=== PATIENT | female | born 1980 | race American Indian/Alaskan Native ===

== ENCOUNTER 2018-02-06 18:29 | Outpatient (CLI) | payer OTHER ==
[2018-02-06] MEDS ORDERED: LACTATED RINGERS 500 ML IV ONE (20:49)
--- NOTE | 2018-02-06 23:20 | Ultrasound Report ---
FINAL REPORT PROCEDURE: US OB FOLLOW UP TECHNIQUE: Real-time limited sonographic examination was performed for evaluation of size, position, heartbeat, fluid volume for each fetus with image documentation (1 or more fetuses). CPT 07097 HISTORY: SPOTTING COMPARISON: No prior studies are available for comparison. FINDINGS: MATERNAL Uterus: Within normal limits . Cervix length: 3.4 cm. Internal Os: Closed . FETUS IUP: Single living intrauterine . Position: Transverse. Placental position: Anterior, without previa . Amniotic fluid volume: Normal . Heart rate and rhythm: 141 BPM, Regular . anatomic survey: Not performed on this study. MEASUREMENTS BPD: 9.1 centimeter. HC: 31.8 centimeter. AC: 31.6 centimeter. FL: 6.9 centimeter. Mean Gestational Age (composite criteria): 35 weeks 5 days. Ratio biometry: Normal . Estimated Weight: 2704 grams. Interval growth: Appropriate . Estimated Due Date (this scan): 03/08/2018. IMPRESSION: 1. Single living intrauterine gestation at approximately 35 weeks 5 days. 2. EDC by US 03/08/2018.
== END 2018-02-06 23:43 | disposition home or self-care (01) ==
LOC: TRG 18:29
PROVIDERS: ATTEND Obstetrics & Gynecology Gynecology
DX: O32.2XX0 Maternal care for transverse and oblique lie, not applicable or unspecified (principal); O09.523 Supervision of elderly multigravida, third trimester; O47.03 False labor before 37 completed weeks of gestation, third trimester; Z3A.35 35 weeks gestation of pregnancy
CPT/HCPCS: 59025; 76816; J7120; 96361

== ENCOUNTER 2018-02-19 11:31 | Inpatient (IN) | payer SELFPAY ==
[2018-02-19] MEDS ORDERED: LACTATED RINGERS 1,000 ML IV ONE (12:26)
[2018-02-19] MEDS ORDERED: LACTATED RINGERS 1,000 ML ONE ×2 (17:33→19:28)
[2018-02-19] MEDS ORDERED: AMBIEN PO PRN (19:05)
[2018-02-19] MEDS ORDERED: BENADRYL PO PRN (19:05)
[2018-02-19] MEDS ORDERED: COLACE PO PRN (19:05)
[2018-02-19] MEDS ORDERED: DEEP SEA NS PRN (19:05)
[2018-02-19] MEDS ORDERED: ZOFRAN IV PRN (19:05)
--- NOTE | 2018-02-19 19:10 | History and Physical Report ---
History of Present Illness Date of examination: 02/19/18 Date of admission: 02/19/18 12:25 Chief complaint: decreased movement, vaginal bleeding History of present illness: Pt is a 37 year old MILDRED 03/31/18 at 34w2d who presents with decreased movement x 24 hrs. She also reports intermittent vaginal bleeding for the past 2-3 weeks, with an increase in bleeding over the past 48 hrs with clots. She has had care at [facility] x 1 visit on 02/09/18 but hand care in [place] prior to coming to [place]. Her has been complicated by obesity, advanced maternal age, UTI undergoing treatment, glucose intolerance with a normal 3 hr GTT, thrombocytopenia (platelet count 110 ,000 on 02/09/18) and GBS positive status. Of note, the patient reports receiving two doses of betamethasone beginning January 11. 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 Past History Past Medical History: GERD, other (Obesity) Past Surgical History: D&C Family/Genetic History: diabetes, hypertension Social history: no significant social history, - Obstetrical History Expected Date of Delivery: 03/31/18 Actual Gestation: 34 Week(s) 3 Day(s) : 4 Para: 2 Hx # Term Pregnancies: 2 Number of Pregnancies: 0 Spontaneous Abortions: 1 Induced : 0 Number of Living Children: 2 Medications and Allergies Allergies Allergy/AdvReac Type Severity Reaction Status Date / Time Sulfa (Sulfonamide Allergy Rash Verified 02/06/18 20:49 Antibiotics) Home Medications Medication Instructions Recorded Confirmed Last Taken Type Nitrofurantoin Monohyd/M-Cryst 100 mg PO BID 02/19/18 02/19/18 Unknown History [Macrobid 100 mg Capsule] Vit-Fe Fumar-FA [ 1 tab PO QDAY 02/19/18 02/19/18 Unknown History Vitamin] Active Meds: Active Medications Acetaminophen (Tylenol) 650 mg PO Q4H PRN PRN Reason: Pain MILD(1-3)/Fever >100.5/TREADWELL Betamethasone Acet/Betameth SodPhos (Celestone Soluspan) 12 mg IM Q24HR JACQUELINE Stop: 02/20/18 10:01 Diphenhydramine HCl (Benadryl) 25 mg PO Q6H PRN PRN Reason: Itching Docusate Sodium (Colace) 100 mg PO Q12H PRN PRN Reason: Constipation Multivitamins/Iron/Calcium ( Vitamin) 1 each PO QDAY JACQUELINE Ondansetron HCl (Zofran) 4 mg IV Q6H PRN PRN Reason: Nausea And Vomiting Sodium Chloride (Deep Sea) 2 spray NS Q4H PRN PRN Reason: Congestion Zolpidem Tartrate (Ambien) 10 mg PO ONCE PRN PRN Reason: Sleep Review of Systems All systems: negative - Vital Signs Vital signs: Vital Signs Pulse Resp 60 20 02/19/18 12:15 02/19/18 12:15 Temp Pulse Resp BP Pulse Ox 78 20 133/79 02/19/18 19:07 02/19/18 12:15 02/19/18 19:07 - Physical Exam Breasts: Positive: deferred Cardiovascular: Regular rate Lungs: Positive: Clear to auscultation Abdomen: Positive: soft (obese, gravid ) Genitourinary (Female): Positive: normal external genitalia Uterus: Positive: enlarged (gravid ) Extremities: Positive: edema (trace) - Obstetrical FHR: auscultation normal Uterine Contraction Monitor Mode: External Cervical Dilatation: 0.5 Cervical Effacement Percentage: 40 station: -4 Uterine Contraction Pattern: Irregular Uterine Tone Measurement Phase: Resting Uterine Contraction Intensity: Mild Results Result Diagrams: 02/19/18 20:40 Abnormal lab results 02/19/18 Range/Units 17:15 POC Glucose 46 L (70-105) All other labs normal. Assessment and Plan A: IUP at 34w2d Decreased Movement Vaginal Bleeding Thrombocytopenia Obesity AMA GBS positive Glucose Intolerance GERD P: Admit to antepartum service BPP and limited OB ultrasound CBC, Type and Screen MFM consult Closely monitor clinical status
[2018-02-19] MEDS ORDERED: LACTATED RINGERS 1,000 ML IV SCH (20:00)
[2018-02-19] MEDS ORDERED: CELESTONE SOLUSPAN IM SCH (20:00)
[2018-02-19 21:10] LABS: Hemoglobin 10.3 gm/dl (10.1-14.3); Mean Corpuscular HGB Conc 32 % (30-34); Mean Corpuscular Hemoglobin 33 pg (28-32); Mean Corpuscular Volume 102 fl (79-97); Platelet Count 100 K/mm3 (140-440); Red Blood Count 3.16 M/mm3 (3.65-5.03); Red Cell Distribution Width 15.3 % (13.2-15.2)
[2018-02-19 21:55] LABS: Basophils % (Manual) 0 % (0.0-1.8); Eosinophils % (Manual) 0 % (0.0-4.3); Myelocytes # (Manual) 0.2 K/mm3; Total Cells Counted 100
[2018-02-19 21:56] LABS: Platelet Estimate Consistent w Auto; RBC Morphology Normal
--- NOTE | 2018-02-20 00:44 | Ultrasound Report ---
FINAL REPORT EXAM: US OB BPP WO NON-STRESS HISTORY: well being, vaginal bleeding TECHNIQUE: A limited OB sonogram was obtained for biophysical profile. FINDINGS: For breathing movements, a score of 2 out of 2 was obtained. For movements, a score of 2 out of 2 was obtained. For posture in tone, a score of 2 out of 2 was obtained. For qualitative amniotic fluid volume, a score of 2 out of 2 was obtained. The heart rate is 153 BPM. IMPRESSION: Biophysical profile score of 8 out of 8. The heart rate is 153 BPM.
--- NOTE | 2018-02-20 07:42 | Ultrasound Report ---
FINAL REPORT EXAM: US OB LIMITED HISTORY: r/o abruption; h/o vaginal bleeding. TECHNIQUE: A limited OB sonogram was obtained for evaluation of the placenta. FINDINGS: The placenta is on the left lateral wall of the uterus. It is grade 1. There is no evidence of placental abruption. The fetus is in cephalic presentation. The heart rate is 148 BPM. IMPRESSION: No evidence of placental abruption. The heart rate is 148 BPM.
[2018-02-20] MEDS: PRENATAL VITAMIN PO SCH (11:26)
--- NOTE | 2018-02-20 13:22 | Progress Note ---
Assessment and Plan A: IUP at 34w3d Decreased Movement Vaginal Bleeding Thrombocytopenia Obesity AMA GBS positive Glucose Intolerance GERD UTI P: will change macrobid to rocephin and d/c home on keflex await MFM consult ( verbal from Dr. Mehta) close monitor Subjective - Subjective Date of service: 02/20/18 Principal diagnosis: vaginal bleeding in third trimester Patient reports: movement normal, no new complaints, no loss of fluid Objective - Vital Signs Vital Signs: Vital Signs - 12hr 02/20/18 02/20/18 02/20/18 08:33 08:40 12:57 Temperature 97 F L Pulse Rate 62 62 67 Respiratory 20 Rate Blood Pressure 126/57 Blood Pressure 126/52 [Right] O2 Sat by Pulse 98 Oximetry 02/20/18 02/20/18 02/20/18 13:01 13:02 13:07 Temperature 97.8 F Pulse Rate 77 69 77 Respiratory 20 Rate Blood Pressure 124/64 Blood Pressure 124/64 [Right] O2 Sat by Pulse 99 99 98 Oximetry 02/20/18 02/20/18 02/20/18 13:12 13:17 13:22 Temperature Pulse Rate 70 67 70 Respiratory Rate Blood Pressure Blood Pressure [Right] O2 Sat by Pulse 99 98 99 Oximetry - Exam Breasts: normal Cardiovascular: Regular rate, Normal S1 Lungs: Clear to auscultation, Normal air movement Abdomen: Present: normal appearance, soft, normal bowel sounds. Absent: distention, tenderness, guarding Vulva: both: normal Uterus: Present: normal FHR: category 1 Cervical Dilatation: 0.5 Uterine Contraction Pattern: Irregular Deep Tendon Reflex Grade: Normal +2 - Labs Labs: Abnormal Labs 02/19/18 02/19/18 17:15 20:40 RBC 3.16 L MCV 102 H MCH 33 H RDW 15.3 H Plt Count 100 L Seg Neuts % (Manual) 83.0 H Lymphocytes % (Manual) 11.0 L Lymphocytes # (Manual) 0.9 L POC Glucose 46 L Laboratory Results - last 24 hr 02/19/18 02/19/18 02/19/18 17:15 20:40 20:40 WBC 7.9 RBC 3.16 L Hgb 10.3 Hct 32.0 MCV 102 H MCH 33 H MCHC 32 RDW 15.3 H Plt Count 100 L Add Manual Diff Complete Total Counted 100 Seg Neuts % (Manual) 83.0 H Band Neutrophils % 0 Lymphocytes % (Manual) 11.0 L Reactive Lymphs % (Man) 0 Monocytes % (Manual) 4.0 Eosinophils % (Manual) 0 Basophils % (Manual) 0 Metamyelocytes % 0 Myelocytes % 2.0 Promyelocytes % 0 Blast Cells % 0 Nucleated RBC % Not Reportable Seg Neutrophils # Man 6.6 Band Neutrophils # 0.0 Lymphocytes # (Manual) 0.9 L Abs React Lymphs (Man) 0.0 Monocytes # (Manual) 0.3 Eosinophils # (Manual) 0.0 Basophils # (Manual) 0.0 Metamyelocytes # 0.0 Myelocytes # 0.2 Promyelocytes # 0.0 Blast Cells # 0.0 WBC Morphology Not Reportable Hypersegmented Neuts Not Reportable Hyposegmented Neuts Not Reportable Hypogranular Neuts Not Reportable Smudge Cells Not Reportable Toxic Granulation Not Reportable Toxic Vacuolation Not Reportable Dohle Bodies Not Reportable Pelger-Huet Anomaly Not Reportable Matthew Rods Not Reportable Platelet Estimate Consistent w auto Clumped Platelets Not Reportable Plt Clumps, EDTA Not Reportable Large Platelets Not Reportable Giant Platelets Not Reportable Platelet Satelliting Not Reportable Plt Morphology Comment Not Reportable RBC Morphology Normal Dimorphic RBCs Not Reportable Polychromasia Not Reportable Hypochromasia Not Reportable Poikilocytosis Not Reportable Anisocytosis Not Reportable Microcytosis Not Reportable Macrocytosis Not Reportable Spherocytes Not Reportable Pappenheimer Bodies Not Reportable Sickle Cells Not Reportable Target Cells Not Reportable Tear Drop Cells Not Reportable Ovalocytes Not Reportable Helmet Cells Not Reportable [place] Bodies Not Reportable [place] Rings Not Reportable [place] Cells Not Reportable Bite Cells Not Reportable Crenated Cell Not Reportable Elliptocytes Not Reportable Acanthocytes (Spur) Not Reportable Rouleaux Not Reportable Hemoglobin C Crystals Not Reportable Schistocytes Not Reportable Malaria parasites Not Reportable Trino Bodies Not Reportable Hem Pathologist Commnt No POC Glucose 46 L Blood Type O POSITIVE Antibody Screen Negative
--- NOTE | 2018-02-20 14:13 | Consultation ---
History of Present Illness Consult date: 02/20/18 Reason for consult: other (Vaginal Bleeding) History of present illness: She is a 37 year old MILDRED 03/31/18 at 34w3d who presents to [facility] due to increased vaginal bleeding with blood clots prior to hospital admission. She reports she has had intermittent bleeding and contractions since 01/11/18 where she was previously evaluated in [facility] triage and given Terbutaline and Betamethasone x 2. She reports dark brown discharge. She denies any active bleeding/clots and leaking of fluid. She reports contractions every 3-7 minutes. Last cervical assessment on 02/19/18 was fingertip. She recently arrived to the from [facility] where she was receiving Care. Upon review of history and labs, she is being followed by primary OB for AMA, Thrombocytopenia ( recent result of 100,000), GBS positive and obesity. Past History Past Medical History: GERD, other (Obesity) Past Surgical History: D&C Family/Genetic History: diabetes, hypertension - Obstetrical History : 4 Medications and Allergies Allergies Allergy/AdvReac Type Severity Reaction Status Date / Time Sulfa (Sulfonamide Allergy Rash Verified 02/06/18 20:49 Antibiotics) Home Medications Medication Instructions Recorded Confirmed Last Taken Type Nitrofurantoin Monohyd/M-Cryst 100 mg PO BID 02/19/18 02/19/18 Unknown History [Macrobid 100 mg Capsule] Vit-Fe Fumar-FA [ 1 tab PO QDAY 02/19/18 02/19/18 Unknown History Vitamin] Active Meds: Active Medications Acetaminophen (Tylenol) 650 mg PO Q4H PRN PRN Reason: Pain MILD(1-3)/Fever >100.5/TREADWELL Diphenhydramine HCl (Benadryl) 25 mg PO Q6H PRN PRN Reason: Itching Docusate Sodium (Colace) 100 mg PO Q12H PRN PRN Reason: Constipation Lactated Ringer's (Lactated Ringers) 1,000 mls @ 75 mls/hr IV DIRECT JACQUELINE Last Admin: 02/20/18 11:36 Dose: 75 mls/hr Ceftriaxone Sodium (Rocephin/Ns 1 Gm/50 Ml) 1 gm in 50 mls @ 100 mls/hr IV Q24HR JACQUELINE; Protocol Multivitamins/Iron/Calcium ( Vitamin) 1 each PO QDAY JACQUELINE Last Admin: 02/20/18 11:26 Dose: Not Given Ondansetron HCl (Zofran) 4 mg IV Q6H PRN PRN Reason: Nausea And Vomiting Sodium Chloride (Deep Sea) 2 spray NS Q4H PRN PRN Reason: Congestion Zolpidem Tartrate (Ambien) 10 mg PO ONCE PRN PRN Reason: Sleep Review of Systems Constitutional: other (denies headaches, fever, fatigue) Eyes: deferred Ears, nose, mouth and throat: deferred Cardiovascular: other (denies chest pain, palpitations, and edema) Respiratory: other (denies sob, wheezing, and coughing) Breasts: deferred Gastrointestinal: other (denies diarrhea, constipation, nausea) Genitourinary: contractions, other (denies leaking of fluid. reports dark brown spotting occasionally) Rectal Exam: deferred Integumentary: deferred Neurological: other (denies headahces, visual disturbances) - Vital Signs Vital signs: Vital Signs Pulse Resp 60 20 02/19/18 12:15 02/19/18 12:15 Temp Pulse Resp BP Pulse Ox 97.8 F 69 20 124/64 99 02/20/18 13:01 02/20/18 14:07 02/20/18 13:01 02/20/18 13:07 02/20/18 14:07 - Physical Exam Breasts: Positive: deferred Cardiovascular: Regular rate, Normal S1, Normal S2 Lungs: Positive: Clear to auscultation, Normal air movement Abdomen: Positive: soft, other (gravid, nontender) Results Result Diagrams: 02/19/18 20:40 Abnormal lab results 02/19/18 02/19/18 Range/Units 17:15 20:40 RBC 3.16 L (3.65-5.03) M/mm3 MCV 102 H (79-97) fl MCH 33 H (28-32) pg RDW 15.3 H (13.2-15.2) % Plt Count 100 L (140-440) K/mm3 Seg Neuts % (Manual) 83.0 H (40.0-70.0) % Lymphocytes % (Manual) 11.0 L (13.4-35.0) % Lymphocytes # (Manual) 0.9 L (1.2-5.4) K/mm3 POC Glucose 46 L (70-105) All other labs normal. Assessment and Plan A: IUP 34.3 weeks, G [id number] ( [employer] 2016) AMA, Obesity, Thrombocytopenia hx, GBS positive No active bleeding UTI- currently being treated with IV Rocephin Contractions Q3-7 minutes- s/p 500ml fluid bolus Positive movements Ultrasound 02/19/18- no signs of placenta abruption Reassuring surveillance- BPP 02/11 S/P Betamethasone x 2 P: Continue with current plan of care Pt to remain hospitalized overnight for observation with possible discharge tomorrow. With cervical changes, pt to remain hospitalized. IV fluid hydration Continue Rocephin for UTI treatment Parker use of Tocolytics Monitor for vaginal bleeding Kick Counts Monitor Platelets. No need for Corticosteriods at this time for Thrombocytopenia. With reduction less than 90,000, initiate steriod regimen With any signs of active labor, notify NICU for consult For any additional questions or concerns, please contact preparation department supervisor MD for [facility] ( Dr. Mehta). Thank you for your consult.
[2018-02-20 15:21] LABS: Hematocrit 30.7 % (30.3-42.9); Hemoglobin 10.4 gm/dl (10.1-14.3); Mean Corpuscular HGB Conc 34 % (30-34); Mean Corpuscular Hemoglobin 32 pg (28-32); Mean Corpuscular Volume 95 fl (79-97); Platelet Count 113 K/mm3 (140-440); Red Blood Count 3.24 M/mm3 (3.65-5.03); Red Cell Distribution Width 14.4 % (13.2-15.2)
[2018-02-20 15:23] LABS: INR 0.91 (0.87-1.13)
[2018-02-20 15:24] LABS: Partial Thromboplastin Time 27.7 Sec. (24.2-36.6)
[2018-02-20 15:30] LABS: Bilirubin,Urine NEG (Negative); Blood,Urine LG (Negative); Color,Urine Yellow (Yellow); Urobilinogen,Urine < 2.0 mg/dL (<2.0)
[2018-02-20] MEDS: ROCEPHIN/NS 1 GM/50 ML 1 GM/50 ML BAG IV SCH (15:56)
[2018-02-20] MEDS: TYLENOL PO PRN (15:59)
[2018-02-20 16:54] LABS: Basophils % (Manual) 0 % (0.0-1.8); Eosinophils % (Manual) 0 % (0.0-4.3); Platelet Estimate Consistent w Auto; RBC Morphology Normal; Total Cells Counted 100
[2018-02-20] MEDS ORDERED: LACTATED RINGERS 1,000 ML IV SCH (18:30)
[2018-02-20] MEDS ORDERED: REGLAN IV ONE (18:30)
[2018-02-20] MEDS ORDERED: PEPCID IV ONE ×2 (18:30→18:43)
[2018-02-20] MEDS ORDERED: BICITRA PO ONE (18:30)
[2018-02-20] MEDS ORDERED: PITOCin/NS 20 UNIT/1000ML DRIP 20 UNITS/1,000 ML BAG IV SCH ×2 (18:30→21:00)
[2018-02-20] MEDS ORDERED: PITOCin/NS 20 UNIT/1000ML DRIP 20,000 MILLIUNITS/1,000 ML BAG IV ONE (18:43)
[2018-02-20] MEDS ORDERED: REGLAN ONE (18:43)
[2018-02-20] MEDS ORDERED: BICITRA ONE (18:43)
[2018-02-20] MEDS ORDERED: ANCEF/STERILE WATER 2 GM/20 ML 2 GM/20 ML SYRINGE IV ONE (18:44)
[2018-02-20] MEDS ORDERED: MORPHINE ONE (19:18)
--- NOTE | 2018-02-20 19:22 | Event Note ---
Date: 02/20/18 Notified by nursing that the patient's biophysical profile was completed with a score of 8/8 however once the patient was placed back on the monitor she was found to have late decelerations. Nursing was informed to prep the patient for a primary delivery of suspected abruption. The patient is abdomen is tender to palpation. Will proceed with surgery.
--- NOTE | 2018-02-20 19:26 | Procedure Note ---
OB Delivery Note - Delivery Date of Delivery: 02/20/18 Surgeon: ARSLAN CORTEZ Estimated blood loss: other (2000ml) - Section Preop diagnosis: nonreassuring FHR tracing Postop diagnosis: same section procedure: section, primary low transverse Disposition: PACU Complications: transfusion, intra-op hemorrhage - A at 1 minute: 8 at 5 minutes: 9 Gender: Male (5 lbs. 13 oz.)
[2018-02-20] MEDS ORDERED: ANCEF/STERILE WATER 2 GM/20 ML IV ONE (19:30)
--- NOTE | 2018-02-20 19:32 | Ultrasound Report ---
FINAL REPORT EXAM: US OB BPP WO NON-STRESS HISTORY: WELL BEING TECHNIQUE: Biophysical profile obstetrical ultrasound PRIORS: None. FINDINGS: LMP 06/24/2017 clinical Age: 34 W 3 D LMP EDC 03/31/2018 Biophysical profile scoring 2 movement 2 tone 2 breathing 2 fluid 8/8 overall score Cardiac motion: 154 BPM using M-mode doppler Amniotic Fluid Volume: Adequate IMPRESSION: Single intrauterine viable with an approximate age of 34 weeks 3 days. Biophysical profile score is 8/8
[2018-02-20] MEDS ORDERED: WATER FOR IRRIG STERILE IR ONE (19:40)
[2018-02-20] MEDS ORDERED: NACL 0.9% IR ONE (19:40)
[2018-02-20] MEDS ORDERED: TORADOL ONE (19:42)
[2018-02-20] MEDS ORDERED: HESPAN 500 ML IV ONE ×3 (19:45→20:10)
--- NOTE | 2018-02-20 19:51 | Ultrasound Report ---
FINAL REPORT EXAM: US OB FOLLOW UP HISTORY: WELL BEING with vaginal bleeding TECHNIQUE: Limited obstetrical ultrasound PRIORS: None. FINDINGS: LMP: 06/24/2017 clinical Age: 34 w 3 d US Age (average) = 36 w 1d EFW (BPD,HC,AC,FL) = 2836 g +/- 420g (6lbs 4 oz. +/- 15 oz.) LMP EDC 03/31/2018 US EDC 03/19/2018 CI 86.8 (range 74 to 83) HC/AC 0.99 (range 0.96 to 1.11) FL/BPD 77 (range 71.9 To 87.9) FL/HC 21.7 (range 17 to 24.2) FL/AC 21.4 (range 20 to 24.0) BPD 9.0 cm corresponding to estimated age 36 weeks 3 days HC 31.9 cm corresponding to estimated age 36 weeks 0 days AC 32.3 cm corresponding to estimated age 36 weeks 2 days FL 6.9 cm corresponding to estimated age 35 weeks 4 days Presentation: Cephalic Activity: Monitored Placental location: Anterior to the left. No evidence of separation of the placenta is identified. Placental grade: 1 Cardiac motion: 156 BPM using M-mode doppler Amniotic Fluid Volume: Adequate SEEMA is 16.4 cm IMPRESSION: Single intrauterine viable with an approximate age of 36 weeks 1 days. No evidence for placental separation is identified.
[2018-02-20] MEDS ORDERED: NACL 0.9% 1000 ML 1,000 ML ONE (20:34)
[2018-02-20] MEDS ORDERED: NACL 0.9% 500 ML 500 ML IV ONE ×3 (20:36→20:54)
--- NOTE | 2018-02-20 20:36 | Operative Report ---
Operative Report Operative Report: Date of surgery: 02/20/2018 Preoperative diagnosis: at 34+3 weeks; nonreassuring heart rate tracing; suspected placental abruption Postoperative diagnosis: Placental abruption Procedure: Primary low transverse delivery Surgeon: Teresa Mckeon M.D. Anesthesia: Regional Estimated blood loss: 2000 mL IV fluids: 1200 mL Urine output: 75 mL Findings: Liveborn male infant with Apgars of 8 and 9 weight 5 lbs. 13 oz. Evidence of blood-tinged peritoneal fluid. Findings of placental abruption Indications: 37-year-old 012 at 34+3 weeks who presents with chronic vaginal bleeding decreased movement. The patient's physical exam was consistent with a uterus that was tender to palpation and firm. The tracing was consistent with repetitive late decelerations with a high suspicion for placental abruption Procedure: The patient was taken to the operating room and given regional anesthesia without complication. She was prepped and draped in a normal sterile fashion. A Pfannenstiel skin incision was made down to layer the fascia which was nicked in the midline extended laterally with the Bovie cautery. The superior aspect of the rectus fascia was grasped with [place] clamps x2 and the rectus muscles off sharply. This was done in inferior fashion as well. The rectus muscle midline and peritoneum entered bluntly. There were findings of blood-tinged peritoneal fluid. An Darek retractor was then inserted. A bladder blade was placed. The vesicouterine peritoneum was then entered sharply with Metzenbaum scissors. A bladder flap was created digitally. Noted that the lower uterine segment was thickened. There were numerous terry plexus in the lower uterine segment. A low transverse uterine incision was then made and extended digitally. There was bloody fluid upon entry into the uterine cavity. The lower uterine segment was not pliable and would not allow for delivery of the head. The uterine incision had to be extended with banjo scissors. A Kiwi vacuum was placed on the head for delivery of the . The infant was delivered through the incision with fundal pressure. The cord was clamped and cut x2 and was passed off to pediatrics. The placenta was then manually extracted. The uterus was then exteriorized and cleared of clots and debris. The uterine incision was then closed in a running locked fashion with 0 Vicryl additional imbricating stitch was applied for 2 layer closure. Additional [id number] stitches had to be placed in the uterine incision for hemostasis. The serosa was then reapproximated with 3-0 Vicryl. The surgery was complicated by extensive hemorrhage during the surgery. The patient became hypotensive and nonresponsive. The blood bank was called for immediate delivery of blood products. The posterior cul-de-sac was then copiously irrigated. The uterus was replaced back into the abdomen and pelvis were the gutters were then irrigated. The Darek retractor was then removed. The peritoneum was then reapproximated with 3-0 Vicryl incorporating the rectus muscle. The fascia was then closed with 0 Vicryl in a running fashion. The skin was then reapproximated with 3-0 Monocryl on a Carlos needle subcuticular fashion. Steri-Strips to place across the incision and a Crede procedures performed at the end of the surgery. A pressure dressing was applied to the incision. The surgery productive of a liveborn male infant with Apgars of 8 and 9 weight 5 lbs. 13 oz. The patient was taken to the recovery room in stable condition. All sponge laps and needle counts correct x2.
[2018-02-20] MEDS ORDERED: MORPHINE IV PRN (20:49)
[2018-02-20] MEDS ORDERED: LANSINOH TP PRN (20:49)
[2018-02-20] MEDS ORDERED: MILK OF MAGNESIA PO PRN (20:49)
[2018-02-20] MEDS ORDERED: NARCAN 0.4 MG/1 ML IV PRN ×2 (20:49→22:12)
[2018-02-20] MEDS ORDERED: TUCKS PAD TP PRN (20:49)
[2018-02-20] MEDS ORDERED: SODIUM CHLORIDE FLUSH SYRINGE 10 ML IV NR (21:00)
[2018-02-20] MEDS ORDERED: D5LR 1,000 ML IV SCH (21:00)
[2018-02-20] MEDS: DILAUDID IV PRN (22:06)
[2018-02-20] MEDS ORDERED: PHENERGAN PR PRN (22:12)
[2018-02-20] MEDS ORDERED: PHENERGAN PO PRN (22:12)
[2018-02-20] MEDS ORDERED: ZOFRAN IV PRN (22:12)
--- NOTE | 2018-02-20 22:12 | Anesthesia Consultation ---
Anesthesia Consult and Med Hx Date of service: 02/20/18 - Airway Anesthetic Teeth Evaluation: Good ROM Head & Neck: Adequate Mental/Hyoid Distance: Adequate Mallampati Class: Class II Intubation Access Assessment: Good - Pulmonary Exam CTA: Yes - Cardiac Exam Cardiac Exam: No Murmur - Pre-Operative Health Status ASA Pre-Surgery Classification: ASA3 Proposed Anesthetic Plan: Spinal - Pulmonary Hx Asthma: No - Cardiovascular System Hx Hypertension: No - Central Nervous System Hx Seizures: No Hx Psychiatric Problems: No - Endocrine Hx Renal Disease: No Hx Hypothyroidism: No Hx Hyperthyroidism: No - Hematic Hx Anemia: No Hx Sickle Cell Disease: No - Other Systems Hx Alcohol Use: No
[2018-02-20] MEDS ORDERED: fentaNYL-BUPIV 2 MCG/ML-0.125% 200 MCG/100 ML BAG EPIDURAL SCH (23:00)
[2018-02-20] MEDS ORDERED: SODIUM CHLORIDE FLUSH SYRINGE 10 ML IV PRN (23:00)
[2018-02-21] MEDS ORDERED: NACL 0.9% 1000 ML 1,000 ML IV SCH (01:00)
[2018-02-21] MEDS: TYLENOL PO PRN ×2 (02:03→23:55)
[2018-02-21] MEDS: MOTRIN PO PRN (04:45)
[2018-02-21 06:55] LABS: Hematocrit 20.8 % (30.3-42.9); Hemoglobin 6.9 gm/dl (10.1-14.3); Mean Corpuscular HGB Conc 33 % (30-34); Mean Corpuscular Hemoglobin 31 pg (28-32); Mean Corpuscular Volume 91 fl (79-97); Red Blood Count 2.28 M/mm3 (3.65-5.03); Red Cell Distribution Width 16.4 % (13.2-15.2)
[2018-02-21] MEDS ORDERED: ceFAZolin 2 GM in NACL 0.9% 100 ML IV SCH (07:00)
[2018-02-21 07:05] LABS: INR 1.09 (0.87-1.13)
[2018-02-21 07:06] LABS: Partial Thromboplastin Time 35.5 Sec. (24.2-36.6); Platelet Count 57 K/mm3 (140-440)
[2018-02-21] MEDS ORDERED: NACL 0.9% 500 ML 500 ML IV ONE ×2 (07:53→08:20)
--- NOTE | 2018-02-21 08:05 | Progress Note ---
Assessment and Plan - Patient Problems (1) Intrapartum hemorrhage Current Visit: Yes Status: Acute Plan to address problem: Patient is scheduled to be transferred to the critical care unit Continue to monitor hemodynamic status closely leaving a [place] in place Will transfuse 2 units of packed red blood cells and platelets Continue to monitor her renal status closely Clindamycin and gentamicin have been added to the patient's antibiotic regimen (2) Febrile illness Current Visit: Yes Status: Acute (3) Anemia Current Visit: Yes Status: Acute Subjective - Subjective Date of service: 02/21/18 Principal diagnosis: vaginal bleeding in third trimester Interval history: POD #1 s/p emergent delivery for placental abruption. Her surgery was complicated by significant blood loss during the procedure. Prior to the delivery the patient had evidence of thrombocytopenia. She received 2 units of packed red blood cells intraoperatively and also received fresh frozen plasma. Today her findings are consistent with febrile morbidity with a temperature spike to 102. Gentamicin and clindamycin will be added to her antibiotic regimen of cephalosporin. Notified by nursing that the patient had respiratory compromise with decreased O2 saturation. Nasal cannula was placed with improvement of her saturation to 94%. Will therefore prepare for transfer to critical care unit and transfusion of additional blood products. This patient is at significant risk for disseminated intravascular coagulopathy. The patient's platelet count has fallen to 57,000. Urine output has been inadequate for volume replacement Patient reports: no appetite normal, no voiding normally, no pain well controlled, no flatus, no nauseated [place]: doing well, in NICU Objective - Vital Signs Latest vital signs: Vital Signs Temp Pulse Resp BP BP Pulse Ox 02/21/18 06:25 102 F H 114 H 22 129/64 80 L 02/21/18 04:13 99.8 F H 99 H 18 142/72 94 02/21/18 03:43 99.7 F H 102 H 18 140/74 94 02/21/18 03:28 99.7 F H 100 H 18 140/72 95 02/21/18 03:10 99.7 F H 103 H 18 142/71 75 L 02/21/18 02:40 99.5 F 99 H 18 138/77 93 02/21/18 02:25 99.5 F 105 H 16 121/79 93 02/20/18 23:42 99.1 F 85 20 130/63 02/20/18 23:30 80 18 113/58 99 08/17/18 22:30 76 16 112/59 98 08/17/18 22:06 80 18 112/59 99 08/17/18 21:51 81 16 107/55 99 08/17/18 21:36 98.3 F 79 18 111/58 99 08/17/18 21:33 122 H 149/76 08/17/18 21:26 80 18 116/55 99 08/17/18 21:21 81 18 120/59 99 08/17/18 21:16 83 18 105/56 99 08/17/18 21:11 81 18 108/52 99 08/17/18 21:06 82 16 116/60 98 08/17/18 21:01 86 18 107/58 99 08/17/18 20:56 98.3 F 87 16 116/56 99 08/17/18 20:51 98.3 F 87 16 109/56 98 08/17/18 20:46 98.6 F 87 18 112/56 99 08/17/18 20:41 98.8 F 91 H 16 124/64 100 08/17/18 20:36 98.2 F 87 16 99 08/17/18 19:08 84 100 08/17/18 19:03 76 100 08/17/18 18:58 71 100 08/17/18 18:53 74 100 08/17/18 18:48 68 100 08/17/18 18:43 72 98 08/17/18 18:38 69 98 08/17/18 18:35 67 155/72 08/17/18 18:33 69 98 08/17/18 18:28 84 98 08/17/18 18:03 68 99 08/17/18 18:00 99.8 F H 24 08/17/18 17:58 68 99 08/17/18 17:53 75 98 08/17/18 17:48 69 99 08/17/18 17:43 72 99 08/17/18 17:38 87 99 08/17/18 17:33 74 98 08/17/18 17:28 70 99 08/17/18 17:23 79 98 08/17/18 17:18 66 98 08/17/18 17:13 66 98 08/17/18 17:08 66 98 08/17/18 17:03 66 98 08/17/18 16:58 75 98 08/17/18 16:53 64 98 08/17/18 16:48 64 98 08/17/18 16:43 62 99 08/17/18 16:38 67 100 08/17/18 16:33 71 100 08/17/18 16:28 86 100 08/17/18 16:23 63 100 08/17/18 16:18 61 100 08/17/18 16:13 63 100 08/17/18 16:08 65 100 08/17/18 16:03 89 99 08/17/18 15:59 20 08/17/18 15:58 72 98 08/17/18 15:53 71 99 08/17/18 15:48 66 99 08/17/18 15:43 64 97 08/17/18 15:38 64 98 08/17/18 15:33 62 98 08/17/18 15:28 64 98 08/17/18 15:23 63 98 08/17/18 15:18 63 99 08/17/18 15:13 65 99 08/17/18 15:08 64 99 08/17/18 15:03 63 98 08/17/18 14:58 63 98 08/17/18 14:53 78 98 08/17/18 14:32 64 98 08/17/18 14:27 66 98 08/17/18 14:22 72 98 08/17/18 14:17 82 98 08/17/18 14:12 73 99 08/17/18 14:07 69 99 08/17/18 14:02 69 99 08/17/18 13:57 71 99 08/17/18 13:52 73 98 08/17/18 13:47 75 99 08/17/18 13:42 79 99 08/17/18 13:37 74 99 08/17/18 13:32 73 100 08/17/18 13:27 68 99 08/17/18 13:22 70 99 08/17/18 13:17 67 98 08/17/18 13:12 70 99 08/17/18 13:07 77 124/64 98 08/17/18 13:02 69 99 08/17/18 13:01 97.8 F 77 20 124/64 99 08/17/18 12:57 67 98 08/17/18 08:40 62 126/57 02/20/18 08:33 97 F L 62 20 126/52 Intake and Output 02/20/18 02/21/18 02/21/18 22:59 06:59 14:59 Intake Total 2450 654 Output Total 105 200 Balance 2345 454 Intake: IV 2000 Intake, Free Water 360 Blood Product 450 294 Fresh Frozen Plasma 294 Thawed Unit [id number] Fresh Frozen Plasma 0 Thawed Unit [id number] Output: Urine 105 200 Indwelling Catheter 200 Other: Total, Output Amount 200 Estimated Blood Loss 2,000 - Exam Cardiovascular: Absent: Regular rate Abdomen: Present: distention, abnormal bowel sounds. Absent: guarding Uterus: Absent: normal Incision: Present: dressed - Labs Labs: Abnormal lab results 02/19/18 02/20/18 02/20/18 Range/Units 20:40 15:02 15:02 RBC 3.24 L (3.65-5.03) M/mm3 Hgb (10.1-14.3) gm/dl Hct (30.3-42.9) % RDW (13.2-15.2) % Plt Count 113 L (140-440) K/mm3 Seg Neuts % (Manual) 88.0 H (40.0-70.0) % Lymphocytes % (Manual) 8.0 L (13.4-35.0) % Nucleated RBC % 1.0 H (0.0-0.9) % Seg Neutrophils # Man 7.8 H (1.8-7.7) K/mm3 Lymphocytes # (Manual) 0.7 L (1.2-5.4) K/mm3 D-Dimer 4011.65 H (0-234) ng/mlDDU Urine WBC (Auto) (0.0-6.0) /HPF Crossmatch See Detail 02/20/18 02/21/18 Range/Units Unknown 05:56 RBC 2.28 L (3.65-5.03) M/mm3 Hgb 6.9 L D (10.1-14.3) gm/dl Hct 20.8 L D (30.3-42.9) % RDW 16.4 H (13.2-15.2) % Plt Count 57 L (140-440) K/mm3 Seg Neuts % (Manual) (40.0-70.0) % Lymphocytes % (Manual) (13.4-35.0) % Nucleated RBC % (0.0-0.9) % Seg Neutrophils # Man (1.8-7.7) K/mm3 Lymphocytes # (Manual) (1.2-5.4) K/mm3 D-Dimer (0-234) ng/mlDDU Urine WBC (Auto) 36.0 H (0.0-6.0) /HPF Crossmatch
[2018-02-21 09:28] LABS: Alanine Aminotransferase 7 units/L (7-56); Albumin 2.9 g/dL (3.9-5); BUN/Creatinine Ratio 18; Blood Urea Nitrogen 18 mg/dL (7-17); Calcium 7.8 mg/dL (8.4-10.2); Hemolysis Index 3
[2018-02-21] MEDS: ROCEPHIN/NS 1 GM/50 ML 1 GM/50 ML BAG IV SCH ×2 (12:53→20:21)
[2018-02-21] MEDS: PERCOCET 5/325 PO PRN (16:45)
[2018-02-21] MEDS: CLEOCIN 600 MG/50 mL 600 MG/50 ML BAG IV SCH (21:05)
[2018-02-21] MEDS: GARAMYCIN/NS 120MG/100ML 120 MG/100 ML BAG IV SCH (22:38)
[2018-02-21 23:57] LABS: Hematocrit 15.4 % (30.3-42.9); Hemoglobin 5.1 gm/dl (10.1-14.3)
[2018-02-22 01:02] LABS: Hematocrit 23.8 % (30.3-42.9); Hemoglobin 8.6 gm/dl (10.1-14.3)
--- NOTE | 2018-02-22 02:24 | Ultrasound Report ---
FINAL REPORT PROCEDURE: US PELVIC COMPLETE TECHNIQUE: Real-time transabdominal sonography in multiple planes of pelvis was performed with image documentation. This examination was performed without Doppler. Vascular abnormalities, including ovarian torsion, will not be detectable without Doppler evaluation. CPT 61455 HISTORY: poss internal bleeding COMPARISON: No prior studies are available for comparison. FINDINGS: UTERUS Size: 16.8 x 12.6 x 15.7 cm. Endometrial thickness: The endometrium is thickened consistent with status. No evidence of retained products. Orientation: anteverted. Cervix: Normal. Fibroids/masses: None. RIGHT Ovary: Not visualized LEFT Ovary: Not visualized Pelvic fluid: Minimal fluid in the lower pelvis. Other: None. IMPRESSION: The uterus is enlarged consistent with status. The endometrium is thickened consistent with the patient's status. There is no evidence of retained products. Minimal fluid in the lower pelvis is noted. The ovaries are not visualized.
--- NOTE | 2018-02-22 02:32 | Event Note ---
Date: 02/22/18 Notified by nursing that the patient's post transfusion H/H was 5.1 & 15.4 which was a decrease from her pre-transfusion H/H of 6.9/20.8. The patient has spiked a temp however her remaining vital signs were normal. A bedside ultrasound was ordered to assess the size of uterus. The patient remains alert and oriented. A H/H was immediately repeated which indicated the first value was a lab error. The followup lab was 8.6/23.8 which was an appropriate response to the transfusion. In anticipation of probably requiring surgery, two units of prbcs were ordered when the hemoglobin was thought to be 5.1. One unit was already infusing while I was discussing the findings with the patient. Will hold the second unit. Will continue to monitor status closely.
[2018-02-22] MEDS: DILAUDID IV PRN (06:18)
[2018-02-22] MEDS: CLEOCIN 600 MG/50 mL 600 MG/50 ML BAG IV SCH ×5 (06:21→21:59)
[2018-02-22 07:32] LABS: Hemoglobin 9.3 gm/dl (10.1-14.3); Mean Corpuscular HGB Conc 34 % (30-34); Mean Corpuscular Hemoglobin 31 pg (28-32); Mean Corpuscular Volume 89 fl (79-97); Red Blood Count 3.05 M/mm3 (3.65-5.03); Red Cell Distribution Width 16.1 % (13.2-15.2)
[2018-02-22 07:41] LABS: Platelet Count 72 K/mm3 (140-440)
[2018-02-22 08:17] LABS: Anisocytosis 1+; Band Neutrophils # (Manual) 2.7 K/mm3; Basophils % (Manual) 0 % (0.0-1.8); Eosinophils % (Manual) 0 % (0.0-4.3); Ovalocytes Few; Total Cells Counted 100
[2018-02-22 08:18] LABS: Dohle Bodies 1+; Platelet Estimate Consistent w Auto
[2018-02-22] MEDS: PRENATAL VITAMIN PO SCH ×2 (08:31→10:06)
[2018-02-22] MEDS: GARAMYCIN/NS 120MG/100ML 120 MG/100 ML BAG IV SCH ×3 (08:38→20:04)
[2018-02-22 09:06] LABS: BUN/Creatinine Ratio 19; Blood Urea Nitrogen 13 mg/dL (7-17); Calcium 7.7 mg/dL (8.4-10.2); Hemolysis Index 44
[2018-02-22] MEDS: PERCOCET 5/325 PO PRN ×2 (10:06→17:45)
[2018-02-22] MEDS: ROCEPHIN/NS 1 GM/50 ML 1 GM/50 ML BAG IV SCH (10:07)
[2018-02-22 13:17] LABS: Hematocrit 28.7 % (30.3-42.9); Hemoglobin 9.6 gm/dl (10.1-14.3)
--- NOTE | 2018-02-22 13:54 | Progress Note ---
Assessment and Plan - Patient Problems (1) Intrapartum hemorrhage Current Visit: Yes Status: Acute Plan to address problem: clinically stable continue IV antibiotics until patient remains afebrile transfer out of ICU (2) Febrile illness Current Visit: Yes Status: Acute (3) Anemia Current Visit: Yes Status: Acute Subjective - Subjective Date of service: 02/22/18 Principal diagnosis: vaginal bleeding in third trimester Interval history: POD #2 s/p emergent delivery for placental abruption. The patient is demonstrating clinical improvement. UOP has improved significantly. She reports +flatus. Hemodynamic status remains stable. Last temp spike early this am currently afebrile. Patient is alert and oriented. Will arrange for transfer out of ICU Patient reports: pain well controlled, flatus [place]: doing well, in NICU Objective - Vital Signs Latest vital signs: Vital Signs Temp Pulse Resp BP Pulse Ox 02/22/18 08:00 98.4 F 02/22/18 06:18 28 H 02/22/18 03:59 100.8 F H 02/22/18 02:26 26 H 02/22/18 00:52 101.1 F H 89 29 H 146/79 98 02/22/18 00:40 102.3 F H 102 H 32 H 156/74 98 02/21/18 23:55 30 H 02/21/18 23:15 102.7 F H 02/21/18 20:00 100.1 F H 02/21/18 18:51 95 H 14 132/68 96 02/21/18 18:41 98 H 18 132/68 97 02/21/18 18:31 90 26 H 132/68 95 02/21/18 18:21 93 H 32 H 137/60 96 02/21/18 18:11 103 H 34 H 96 02/21/18 18:06 99 F 95 H 23 137/60 97 02/21/18 18:00 82 25 H 145/73 93 1818 17:50 93 H 21 145/73 89 02/21/18 17:40 82 28 H 145/73 90 02/21/18 17:36 99.3 F 82 31 H 145/73 95 18 17:30 93 H 17 145/73 93 02/21/18 17:21 99 F 91 H 22 131/70 94 02/21/18 17:20 92 H 22 126/73 94 08/18/18 17:10 94 H 33 H 126/73 94 1818 17:00 90 34 H 126/73 94 1818 16:50 87 31 H 133/73 95 18 16:40 92 H 28 H 133/73 95 02/21/18 16:30 89 33 H 133/73 95 18 16:20 96 H 24 119/76 95 18 16:10 85 26 H 119/76 96 02/21/18 16:00 99 F 88 31 H 119/76 96 02/21/18 15:50 92 H 24 133/77 95 02/21/18 15:47 98 F 90 23 151/90 96 02/21/18 15:40 102 H 18 124/76 96 02/21/18 15:30 90 27 H 124/76 94 02/21/18 15:20 90 31 H 130/79 94 02/21/18 15:17 98.4 F 93 H 20 143/89 96 02/21/18 15:10 90 28 H 133/77 94 02/21/18 15:00 88 29 H 133/77 94 02/21/18 14:50 90 29 H 130/79 93 02/21/18 14:47 98.2 F 92 H 148/85 96 02/21/18 14:40 93 H 23 130/79 93 02/21/18 14:35 96 02/21/18 14:32 98.7 F 90 27 H 130/79 94 02/21/18 14:30 99 H 22 130/79 92 02/21/18 14:20 104 H 16 151/80 93 02/21/18 14:10 96 H 31 H 151/80 91 02/21/18 14:00 105 H 13 124/77 90 Intake and Output 02/21/18 02/22/18 02/22/18 22:59 06:59 14:59 Intake Total 710 100 Output Total 1200 Balance -490 100 Intake: IV 100 100 CLEOCIN 600 MG/50 mL 600 50 mg In 50 ml @ 100 mls/hr IV Q8HR [facility] Rx#:[id number] GARAMYCIN/NS 120MG/100ML 100 120 mg In 100 ml @ 200 mls/hr IV Q8H [facility] Rx#: [id number] ROCEPHIN/NS 1 GM/50 ML 1 50 gm In 50 ml @ 100 mls/hr IV Q24HR [facility] Rx#: [id number] Oral 360 Blood Product 250 0 Leukoreduced Red Blood 0 Cells Unit [id number] Leukoreduced Red Blood 0 Cells Unit [id number] Leukoreduced Red Blood 250 Cells Unit [id number] Output: Urine 1200 Indwelling Catheter 1200 Other: Total, Intake Amount 360 Total, Output Amount 1200 Voiding Method Indwelling Catheter Indwelling Catheter - Exam Abdomen: Present: soft, distention, normal bowel sounds Uterus: Present: firm Incision: Present: dressed - Labs Labs: Abnormal lab results 02/19/18 02/21/18 02/22/18 Range/Units 20:40 23:35 00:42 RBC (3.65-5.03) M/mm3 Hgb 5.1 L* 8.6 L D (10.1-14.3) gm/dl Hct 15.4 L* 23.8 L D (30.3-42.9) % RDW (13.2-15.2) % Plt Count (140-440) K/mm3 Lymphocytes % (Manual) (13.4-35.0) % Lymphocytes # (Manual) (1.2-5.4) K/mm3 Sodium (137-145) mmol/L Carbon Dioxide (22-30) mmol/L Glucose (65-100) mg/dL Calcium (8.4-10.2) mg/dL Crossmatch See Detail 02/22/18 02/22/18 02/22/18 Range/Units 06:32 07:58 12:57 RBC 3.05 L (3.65-5.03) M/mm3 Hgb 9.3 L 9.6 L (10.1-14.3) gm/dl Hct 27.0 L 28.7 L (30.3-42.9) % RDW 16.1 H (13.2-15.2) % Plt Count 72 L (140-440) K/mm3 Lymphocytes % (Manual) 8.0 L (13.4-35.0) % Lymphocytes # (Manual) 0.8 L (1.2-5.4) K/mm3 Sodium 136 L (137-145) mmol/L Carbon Dioxide 17 L (22-30) mmol/L Glucose 101 H (65-100) mg/dL Calcium 7.7 L (8.4-10.2) mg/dL Crossmatch
--- NOTE | 2018-02-22 14:52 | Consultation ---
History of Present Illness Consult date: 02/22/18 History of present illness: This is a post patient was admitted to ICU for severe bleeding and severe anemia. Postop bleeding caused hemoglobin to drop around 5 range. Patient has complained of some shortness of breath has pain from there are no other acute symptoms. Past History Social history: no significant social history, Medications and Allergies Allergies Allergy/AdvReac Type Severity Reaction Status Date / Time Sulfa (Sulfonamide Allergy Rash Verified 02/06/18 20:49 Antibiotics) Home Medications Medication Instructions Recorded Confirmed Last Taken Type Nitrofurantoin Monohyd/M-Cryst 100 mg PO BID 02/19/18 02/19/18 Unknown History [Macrobid 100 mg Capsule] Vit-Fe Fumar-FA [ 1 tab PO QDAY 02/19/18 02/19/18 Unknown History Vitamin] Active Meds: Active Medications Acetaminophen (Tylenol) 650 mg PO Q4H PRN PRN Reason: Pain MILD(1-3)/Fever >100.5/[place]WELL Last Admin: 02/21/18 23:55 Dose: 650 mg Diphenhydramine HCl (Benadryl) 25 mg PO Q6H PRN PRN Reason: Itching Last Admin: 02/21/18 02:03 Dose: 25 mg Docusate Sodium (Colace) 100 mg PO Q12H PRN PRN Reason: Constipation Hydromorphone HCl (Dilaudid) 0.5 mg IV Q5MIN PRN PRN Reason: Pain , Severe (7-10) Last Admin: 02/22/18 06:18 Dose: 0.5 mg Oxytocin/Sodium Chloride (Pitocin/Ns 20 Unit/1000ml Drip) 20 units in 1,000 mls @ 250 mls/hr IV DIRECT [facility] Last Admin: 02/20/18 19:44 Dose: 250 mls/hr Fentanyl/Bupivacaine/Sodium Chlor (Fentanyl-Bupiv 2 Mcg/Ml-0.125%) 200 mcg in 100 mls @ 8 mls/hr EPIDURAL TITRATE [facility]; Protocol Sodium Chloride (Nacl 0.9% 1000 Ml) 1,000 mls @ 125 mls/hr IV DIRECT [facility] Last Admin: 02/22/18 06:24 Dose: 125 mls/hr Clindamycin HCl (Cleocin 600 Mg/50 Ml) 600 mg in 50 mls @ 100 mls/hr IV Q8HR [facility]; Protocol Last Admin: 02/22/18 14:39 Dose: 100 mls/hr Gentamicin Sulfate/Sodium Chloride (Garamycin/Ns 120mg/100ml) 120 mg in 100 mls @ 200 mls/hr IV Q8H [facility] Last Admin: 02/22/18 08:39 Dose: 200 mls/hr Ceftriaxone Sodium (Rocephin/Ns 2 Gm/100 Ml) 2 gm in 100 mls @ 200 mls/hr IV Q12HR [facility]; Protocol Ibuprofen (Motrin) 800 mg PO Q6H PRN PRN Reason: Pain, Mild (1-3) Last Admin: 02/21/18 04:45 Dose: 800 mg Magnesium Hydroxide (Milk Of Magnesia) 30 ml PO QHS PRN PRN Reason: Constip Unrelieved By Senna Morphine Sulfate (Morphine) 2 mg IV Q4H PRN PRN Reason: Pain, Moderate (4-6) Multi-Ingredient Ointment (Lansinoh) 1 applic TP PRN PRN PRN Reason: dryness/cracking Multivitamins/Iron/Calcium ( Vitamin) 1 each PO QDAY [facility] Last Admin: 02/22/18 10:06 Dose: 1 each Naloxone HCl (Narcan 0.4 Mg/1 Ml) 0.2 mg IV Q2MIN PRN PRN Reason: Res Rate </= 8 or 02 SAT < 92% Ondansetron HCl (Zofran) 4 mg IV Q8H PRN PRN Reason: Nausea And Vomiting Oxycodone/Acetaminophen (Percocet 5/325) 2 tab PO Q4H PRN PRN Reason: Pain, Moderate (4-6) Last Admin: 02/22/18 10:06 Dose: 2 tab Promethazine HCl (Phenergan) 25 mg PO Q6H PRN PRN Reason: Nausea And Vomiting Promethazine HCl (Phenergan) 25 mg DC Q6H PRN PRN Reason: Nausea And Vomiting Simethicone (Mylicon) 80 mg PO Q6H PRN PRN Reason: Gas pain Sodium Chloride (Deep Sea) 2 spray NS Q4H PRN PRN Reason: Congestion Sodium Chloride (Sodium Chloride Flush Syringe 10 Ml) 10 ml IV PRN PRN PRN Reason: LINE FLUSH Witch Su/Glycerin (Tucks Pad) 1 each TP PRN PRN PRN Reason: Hemorrhoids/cleansing/soothing Zolpidem Tartrate (Ambien) 10 mg PO ONCE PRN PRN Reason: Sleep Review of Systems All systems: negative Constitutional: weight gain Gastrointestinal: abdominal pain Physical Examination Vital signs: Vital Signs Pulse Resp 60 20 02/19/18 12:15 02/19/18 12:15 General appearance: no acute distress, alert Eyes: non-icteric ENT: oropharynx moist Neck: supple, no lymphadenopathy, no JVD Ascultation: Bilateral: clear Percussion: Bilateral: not dull Cardiovascular: regular rate and rhythm (tachycardia noted) Gastrointestinal: hypoactive bowel sounds, tender Gait: other (not tested) Results - Laboratory Findings CBC and BMP: 02/22/18 12:57 02/22/18 07:58 PT/INR, D-dimer PT 14.7 Sec. (12.2-14.9) 02/21/18 05:56 INR 1.09 (0.87-1.13) 02/21/18 05:56 D-Dimer 4011.65 ng/mlDDU (0-234) H 02/20/18 15:02 Abnormal lab findings: Abnormal Labs 02/19/18 02/19/18 02/19/18 17:15 20:40 20:40 RBC 3.16 L Hgb Hct MCV 102 H MCH 33 H RDW 15.3 H Plt Count 100 L Seg Neuts % (Manual) 83.0 H Lymphocytes % (Manual) 11.0 L Nucleated RBC % Seg Neutrophils # Man Lymphocytes # (Manual) 0.9 L D-Dimer Sodium Carbon Dioxide BUN Glucose POC Glucose 46 L Calcium Total Protein Albumin Urine WBC (Auto) Crossmatch See Detail 02/20/18 02/20/18 02/20/18 15:02 15:02 Unknown RBC 3.24 L Hgb Hct MCV MCH RDW Plt Count 113 L Seg Neuts % (Manual) 88.0 H Lymphocytes % (Manual) 8.0 L Nucleated RBC % 1.0 H Seg Neutrophils # Man 7.8 H Lymphocytes # (Manual) 0.7 L D-Dimer 4011.65 H Sodium Carbon Dioxide BUN Glucose POC Glucose Calcium Total Protein Albumin Urine WBC (Auto) 36.0 H Crossmatch 02/21/18 02/21/18 02/21/18 05:56 08:17 23:35 RBC 2.28 L Hgb 6.9 L D 5.1 L* Hct 20.8 L D 15.4 L* MCV MCH RDW 16.4 H Plt Count 57 L Seg Neuts % (Manual) Lymphocytes % (Manual) Nucleated RBC % Seg Neutrophils # Man Lymphocytes # (Manual) D-Dimer Sodium 135 L Carbon Dioxide 18 L BUN 18 H Glucose POC Glucose Calcium 7.8 L Total Protein 4.5 L Albumin 2.9 L Urine WBC (Auto) Crossmatch 02/22/18 02/22/18 02/22/18 00:42 06:32 07:58 RBC 3.05 L Hgb 8.6 L D 9.3 L Hct 23.8 L D 27.0 L MCV MCH RDW 16.1 H Plt Count 72 L Seg Neuts % (Manual) Lymphocytes % (Manual) 8.0 L Nucleated RBC % Seg Neutrophils # Man Lymphocytes # (Manual) 0.8 L D-Dimer Sodium 136 L Carbon Dioxide 17 L BUN Glucose 101 H POC Glucose Calcium 7.7 L Total Protein Albumin Urine WBC (Auto) Crossmatch 02/22/18 12:57 RBC Hgb 9.6 L Hct 28.7 L MCV MCH RDW Plt Count Seg Neuts % (Manual) Lymphocytes % (Manual) Nucleated RBC % Seg Neutrophils # Man Lymphocytes # (Manual) D-Dimer Sodium Carbon Dioxide BUN Glucose POC Glucose Calcium Total Protein Albumin Urine WBC (Auto) Crossmatch Assessment and Plan Impression: severe anemia secondary to postop () blood loss Recommendations: Transfuse RBCs once hemoglobin is adequate and stable probably patient can be transferred to OB floor
[2018-02-22] MEDS: MOTRIN PO PRN (18:45)
[2018-02-22] MEDS ORDERED: NACL 0.9% 250ML 250 ML ONE (19:24)
[2018-02-22] MEDS ORDERED: NACL 0.9% 250ML IV SCH (19:45)
[2018-02-22] MEDS ORDERED: ROCEPHIN/NS 2 GM/100 ML 2 GM/100 ML BAG IV SCH (22:00)
[2018-02-23] MEDS: GARAMYCIN/NS 120MG/100ML 120 MG/100 ML BAG IV SCH (00:32)
[2018-02-23] MEDS: TYLENOL PO PRN (00:39)
[2018-02-23] MEDS: CLEOCIN 600 MG/50 mL 600 MG/50 ML BAG IV SCH ×3 (05:35→22:30)
[2018-02-23] MEDS: PERCOCET 5/325 PO PRN ×4 (05:39→21:15)
[2018-02-23 07:59] LABS: Hematocrit 26.6 % (30.3-42.9); Hemoglobin 8.8 gm/dl (10.1-14.3); Mean Corpuscular HGB Conc 33 % (30-34); Mean Corpuscular Hemoglobin 30 pg (28-32); Mean Corpuscular Volume 89 fl (79-97); Red Blood Count 2.97 M/mm3 (3.65-5.03); Red Cell Distribution Width 16.9 % (13.2-15.2)
[2018-02-23 08:08] LABS: Platelet Count 91 K/mm3 (140-440)
[2018-02-23] MEDS ORDERED: LASIX PO ONE (09:03)
--- NOTE | 2018-02-23 09:08 | Progress Note ---
Assessment and Plan - Patient Problems (1) Intrapartum hemorrhage Current Visit: Yes Status: Acute (2) Febrile illness Current Visit: Yes Status: Acute Plan to address problem: demonstrating clinical improvement continue IV antibiotics start labetalol (3) Anemia Current Visit: Yes Status: Acute Subjective - Subjective Date of service: 02/23/18 Principal diagnosis: vaginal bleeding in third trimester Interval history: Patient with improvement in temperature spikes. Most recent temp 99.7. Patient is tolerating a regular diet. Pain is controlled. Experiencing peripheral edema in upper and lower extremities. Labile blood pressures. Will initiate antihypertensive. Patient reports: appetite normal, pain well controlled, flatus [place]: doing well, in NICU Objective - Vital Signs Latest vital signs: Vital Signs Temp Pulse Pulse Resp BP BP Pulse Ox 02/23/18 04:15 98.2 F 100 H 72 18 153/90 153/90 100 02/23/18 01:14 98.7 F 81 18 149/92 99 02/22/18 22:01 99.7 F H 88 18 152/87 02/22/18 20:38 97.9 F 88 18 152/87 95 02/22/18 18:33 147/87 80 L 02/22/18 18:22 147/87 83 L 02/22/18 18:12 147/87 81 L 02/22/18 18:01 147/87 94 02/22/18 17:39 147/87 85 02/22/18 17:04 147/87 02/22/18 16:00 147/87 81 L 02/22/18 15:51 84 23 147/87 99 02/22/18 15:41 76 22 147/87 99 02/22/18 15:30 80 14 147/87 99 02/22/18 15:21 93 H 31 H 156/90 97 02/22/18 15:11 80 21 156/90 99 02/22/18 15:00 82 23 156/90 99 02/22/18 14:51 82 25 H 145/85 99 02/22/18 14:41 77 21 145/85 99 02/22/18 14:30 89 17 145/85 99 02/22/18 14:21 81 22 140/88 98 02/22/18 14:11 75 22 140/88 98 02/22/18 14:00 96 H 18 140/88 98 02/22/18 13:50 79 21 143/84 99 02/22/18 13:41 75 23 143/84 99 02/22/18 13:30 76 18 143/84 98 02/22/18 13:21 84 25 H 135/80 98 02/22/18 13:11 92 H 27 H 145/82 98 02/22/18 13:00 90 24 145/82 99 02/22/18 12:51 93 H 20 135/80 99 02/22/18 12:41 96 H 20 135/80 98 02/22/18 12:30 82 20 135/80 99 02/22/18 12:21 107 H 21 120/78 97 02/22/18 12:11 78 21 120/78 99 02/22/18 12:00 99.7 F H 75 19 120/78 99 02/22/18 11:51 78 18 131/76 99 02/22/18 11:41 81 21 131/76 99 02/22/18 11:30 74 21 131/76 98 02/22/18 11:21 81 19 132/72 98 02/22/18 11:11 80 20 132/72 98 02/22/18 11:00 79 22 132/72 98 02/22/18 10:51 79 22 152/83 98 02/22/18 10:41 77 27 H 152/83 98 02/22/18 10:30 83 35 H 152/83 97 02/22/18 10:21 79 30 H 152/81 97 02/22/18 10:11 92 H 21 152/81 97 02/22/18 10:00 96 H 32 H 152/81 97 02/22/18 09:51 93 H 26 H 140/84 97 02/22/18 09:41 86 31 H 140/84 97 02/22/18 09:30 83 29 H 140/84 97 02/22/18 09:21 87 29 H 141/82 97 02/22/18 09:11 88 21 141/82 97 Intake and Output 02/22/18 02/23/18 02/23/18 22:59 06:59 14:59 Intake Total 1450 250 Balance 1450 250 Intake: IV 1200 250 CLEOCIN 600 MG/50 mL 600 50 50 mg In 50 ml @ 100 mls/hr IV Q8HR [facility] Rx#:[id number] GARAMYCIN/NS 120MG/100ML 100 100 120 mg In 100 ml @ 200 mls/hr IV Q8H [facility] Rx#: [id number] NaCl 0.9% 1000 ml 1,000 1000 ml @ 125 mls/hr IV DIRECT [facility] Rx#:[id number] ROCEPHIN/NS 1 GM/50 ML 1 50 gm In 50 ml @ 100 mls/hr IV Q24HR [facility] Rx#: [id number] ROCEPHIN/NS 2 GM/100 ML 2 100 gm In 100 ml @ 200 mls/ hr IV Q12HR [facility] Rx#: [id number] Blood Product 250 Leukoreduced Red Blood 250 Cells Unit [id number] - Exam Abdomen: Present: soft, distention, normal bowel sounds Extremities: Present: edema - Labs Labs: Abnormal lab results 02/19/18 02/22/18 02/23/18 Range/Units 20:40 12:57 07:45 WBC 14.1 H (4.5-11.0) K/mm3 RBC 2.97 L (3.65-5.03) M/mm3 Hgb 9.6 L 8.8 L (10.1-14.3) gm/dl Hct 28.7 L 26.6 L (30.3-42.9) % RDW 16.9 H (13.2-15.2) % Plt Count 91 L (140-440) K/mm3 Crossmatch See Detail
[2018-02-23] MEDS: NORMODYNE PO SCH ×2 (10:25→22:25)
[2018-02-23] MEDS: PRENATAL VITAMIN PO SCH (10:25)
[2018-02-23] MEDS: GARAMYCIN 120 MG in NACL 0.9% 100 ML IV SCH ×2 (10:25→19:30)
[2018-02-23] MEDS: ROCEPHIN/NS 2 GM/100 ML 2 GM/100 ML BAG IV SCH (11:00)
[2018-02-23] MEDS: MOTRIN PO PRN (18:46)
[2018-02-24] MEDS: PERCOCET 5/325 PO PRN ×5 (03:09→23:45)
[2018-02-24] MEDS: GARAMYCIN 120 MG in NACL 0.9% 100 ML IV SCH ×3 (05:42→22:20)
[2018-02-24] MEDS ORDERED: NACL 0.9% 1000 ML 1,000 ML ONE (07:28)
[2018-02-24] MEDS: CLEOCIN 600 MG/50 mL 600 MG/50 ML BAG IV SCH ×3 (07:30→23:40)
[2018-02-24] MEDS ORDERED: NORMODYNE PO SCH (08:32)
--- NOTE | 2018-02-24 08:32 | Progress Note ---
Assessment and Plan - Patient Problems (1) Intrapartum hemorrhage Current Visit: Yes Status: Acute Plan to address problem: hemodynamically stable will obtain EKG continue supportive care and encourage ambulation (2) Febrile illness Current Visit: Yes Status: Acute (3) Anemia Current Visit: Yes Status: Acute Subjective - Subjective Date of service: 02/24/18 Principal diagnosis: vaginal bleeding in third trimester Interval history: Patient states that while she was cleaning herself up in the restroom she felt palpitations. Denies any dizziness. Reports having a bowel movement 2 days ago. +Flatus. Tolerating a regular diet. Blood pressures remain mildly elevated Patient reports: appetite normal, pain well controlled, flatus [place]: doing well, in NICU Objective - Vital Signs Latest vital signs: Vital Signs Temp Pulse Resp BP BP Pulse Ox 02/24/18 04:10 98.6 F 77 22 146/86 100 02/24/18 04:09 18 02/24/18 03:09 18 02/24/18 00:00 98.4 F 76 18 138/81 97 02/23/18 22:30 72 147/90 02/23/18 22:25 72 147/90 02/23/18 21:15 18 02/23/18 20:10 99.2 F 72 18 141/87 100 02/23/18 15:31 73 99 02/23/18 15:30 98.6 F 74 18 147/84 99 02/23/18 12:58 77 99 Intake and Output 02/23/18 02/24/18 02/24/18 22:59 06:59 14:59 Intake Total 943 50 Output Total 701 400 Balance 242 -350 Intake: IV 103 50 CLEOCIN 600 MG/50 mL 600 50 mg In 50 ml @ 100 mls/hr IV Q8HR JACQUELINE Rx#:[id number] Garamycin 120 mg In NaCl 103 0.9% 100 ml @ 206 mls/hr IV Q8H JACQUELINE Rx#:[id number] Oral 840 Output: Urine 701 400 Indwelling Catheter 701 Void 400 Other: Total, Intake Amount 240 Total, Output Amount 1 400 # Voids Indwelling Catheter 1 Void 1 - Exam Abdomen: Present: soft Uterus: Present: normal, firm
[2018-02-24] MEDS: MILK OF MAGNESIA PO PRN ×2 (09:31→14:15)
[2018-02-24] MEDS: FEOSOL PO SCH ×2 (09:31→22:20)
[2018-02-24] MEDS: NORMODYNE PO SCH ×2 (09:31→22:20)
[2018-02-24] MEDS: PRENATAL VITAMIN PO SCH (09:31)
[2018-02-24] MEDS: ROCEPHIN/NS 2 GM/100 ML 2 GM/100 ML BAG IV SCH (11:24)
[2018-02-24] MEDS: MOTRIN PO PRN (11:29)
--- NOTE | 2018-02-24 15:12 | Progress Note ---
Assessment and Plan s/p post hemorrhage,ICU stay.Seen by , now out at [facility]. Controlled. No bleeding . Hemodynamically stable, H/H adequate Placenta Abrupta Puerperium HBP. On meds. This and post lung restriction,may be reason of respiratory sensation. Bedside O2 sat 99-100% Rec Monitor BP, H/H Incentive spirometry DVT prophylaxis Subjective Date of service: 02/24/18 Principal diagnosis: vaginal bleeding in third trimester,post hemorrhage Interval history: No bleeding. Concerned about been SOB at times. Some pain from surgery, better. No cough or chest pain .No fever Objective Vital Signs - 12hr 02/24/18 02/24/18 02/24/18 03:09 04:09 04:10 Temperature 98.6 F Pulse Rate 77 Respiratory 18 18 22 Rate Blood Pressure Blood Pressure 146/86 [Right] O2 Sat by Pulse 100 Oximetry 02/24/18 02/24/18 02/24/18 07:47 09:24 09:31 Temperature 98.7 F Pulse Rate 73 92 H Respiratory 17 20 Rate Blood Pressure 163/89 160/94 Blood Pressure [Right] O2 Sat by Pulse 100 Oximetry 02/24/18 02/24/18 02/24/18 11:29 12:03 14:31 Temperature 98.7 F Pulse Rate 76 Respiratory 20 20 Rate Blood Pressure 158/90 Blood Pressure 152/80 [Right] O2 Sat by Pulse 98 Oximetry Constitutional: no acute distress, alert Eyes: non-icteric ENT: oropharynx moist Neck: supple, no lymphadenopathy, no JVD Ascultation: Bilateral: clear, diminished breath sounds (expansion) Percussion: Bilateral: not dull Cardiovascular: regular rate and rhythm, murmur noted (07/12) Gastrointestinal: hypoactive bowel sounds, tender Integumentary: normal Extremities: edema (mild, pretibial and hands) Neurologic: normal mental status, pupils equal and round, CN II-XII normal, motor strength normal and Psychiatric: mood appropriate CBC and BMP: 02/23/18 07:45 02/22/18 07:58 ABG, PT/INR, D-dimer: PT/INR, D-dimer PT 14.7 Sec. (12.2-14.9) 02/21/18 05:56 INR 1.09 (0.87-1.13) 02/21/18 05:56 D-Dimer 4011.65 ng/mlDDU (0-234) H 02/20/18 15:02 Abnormal lab findings: Abnormal Labs 02/19/18 02/19/18 02/19/18 17:15 20:40 20:40 WBC RBC 3.16 L Hgb Hct MCV 102 H MCH 33 H RDW 15.3 H Plt Count 100 L Seg Neuts % (Manual) 83.0 H Lymphocytes % (Manual) 11.0 L Nucleated RBC % Seg Neutrophils # Man Lymphocytes # (Manual) 0.9 L D-Dimer Sodium Carbon Dioxide BUN Glucose POC Glucose 46 L Calcium Total Protein Albumin Urine WBC (Auto) Crossmatch See Detail 02/20/18 02/20/18 02/20/18 15:02 15:02 Unknown WBC RBC 3.24 L Hgb Hct MCV MCH RDW Plt Count 113 L Seg Neuts % (Manual) 88.0 H Lymphocytes % (Manual) 8.0 L Nucleated RBC % 1.0 H Seg Neutrophils # Man 7.8 H Lymphocytes # (Manual) 0.7 L D-Dimer 4011.65 H Sodium Carbon Dioxide BUN Glucose POC Glucose Calcium Total Protein Albumin Urine WBC (Auto) 36.0 H Crossmatch 02/21/18 02/21/18 02/21/18 05:56 08:17 23:35 WBC RBC 2.28 L Hgb 6.9 L D 5.1 L* Hct 20.8 L D 15.4 L* MCV MCH RDW 16.4 H Plt Count 57 L Seg Neuts % (Manual) Lymphocytes % (Manual) Nucleated RBC % Seg Neutrophils # Man Lymphocytes # (Manual) D-Dimer Sodium 135 L Carbon Dioxide 18 L BUN 18 H Glucose POC Glucose Calcium 7.8 L Total Protein 4.5 L Albumin 2.9 L Urine WBC (Auto) Crossmatch 02/22/18 02/22/18 02/22/18 00:42 06:32 07:58 WBC RBC 3.05 L Hgb 8.6 L D 9.3 L Hct 23.8 L D 27.0 L MCV MCH RDW 16.1 H Plt Count 72 L Seg Neuts % (Manual) Lymphocytes % (Manual) 8.0 L Nucleated RBC % Seg Neutrophils # Man Lymphocytes # (Manual) 0.8 L D-Dimer Sodium 136 L Carbon Dioxide 17 L BUN Glucose 101 H POC Glucose Calcium 7.7 L Total Protein Albumin Urine WBC (Auto) Crossmatch 02/22/18 02/23/18 12:57 07:45 WBC 14.1 H RBC 2.97 L Hgb 9.6 L 8.8 L Hct 28.7 L 26.6 L MCV MCH RDW 16.9 H Plt Count 91 L Seg Neuts % (Manual) Lymphocytes % (Manual) Nucleated RBC % Seg Neutrophils # Man Lymphocytes # (Manual) D-Dimer Sodium Carbon Dioxide BUN Glucose POC Glucose Calcium Total Protein Albumin Urine WBC (Auto) Crossmatch
[2018-02-24] MEDS: MYLICON PO PRN ×2 (15:39→21:15)
[2018-02-25] MEDS: MYLICON PO PRN ×2 (03:25→15:52)
[2018-02-25] MEDS: PERCOCET 5/325 PO PRN ×4 (03:25→21:50)
[2018-02-25] MEDS: GARAMYCIN 120 MG in NACL 0.9% 100 ML IV SCH (06:40)
--- NOTE | 2018-02-25 09:11 | Progress Note ---
Assessment and Plan - Patient Problems (1) Intrapartum hemorrhage Current Visit: Yes Status: Acute (2) Febrile illness Current Visit: Yes Status: Acute (3) Anemia Current Visit: Yes Status: Acute (4) hypertension Current Visit: Yes Status: Acute Plan to address problem: Will add Procardia XL to antihypertensive regimen Subjective - Subjective Date of service: 02/25/18 Principal diagnosis: vaginal bleeding in third trimester,post hemorrhage Interval history: Patient reports feeling better. Maintaining O2 sats on room air. Blood pressures remain elevated on labetalol dosing. Will add an additional antihypertensive agent. Upper extremity edema is improving patient continues to have lower extremity edema Patient reports: appetite normal, voiding normally, pain well controlled [place]: doing well, in NICU Objective - Vital Signs Latest vital signs: Vital Signs Temp Pulse Resp BP BP Pulse Ox 02/25/18 08:35 99.4 F 91 H 18 149/85 97 02/25/18 04:05 98.4 F 72 18 158/86 98 02/25/18 00:20 98.4 F 82 20 153/86 96 02/24/18 21:00 98.8 F 69 20 164/89 100 02/24/18 15:47 99.2 F 78 16 149/73 98 02/24/18 15:31 20 02/24/18 14:31 152/80 02/24/18 12:03 98.7 F 76 20 158/90 98 02/24/18 11:29 20 02/24/18 09:31 92 H 160/94 02/24/18 09:24 20 Intake and Output 02/24/18 02/25/18 02/25/18 22:59 06:59 14:59 Intake Total 513 Output Total 600 1200 Balance -87 -1200 Intake: IV 153 CLEOCIN 600 MG/50 mL 600 50 mg In 50 ml @ 100 mls/hr IV Q8HR [facility] Rx#:[id number] Garamycin 120 mg In NaCl 103 0.9% 100 ml @ 206 mls/hr IV Q8HR [facility] Rx#:[id number] Oral 360 Output: Urine 600 1200 Void 600 1200 Other: Total, Intake Amount 240 Total, Output Amount 600 400 - Exam Abdomen: Present: normal appearance, soft Extremities: Present: edema Incision: Present: normal
[2018-02-25 09:45] LABS: Hematocrit 27.1 % (30.3-42.9); Hemoglobin 8.9 gm/dl (10.1-14.3); Mean Corpuscular HGB Conc 33 % (30-34); Mean Corpuscular Hemoglobin 30 pg (28-32); Mean Corpuscular Volume 90 fl (79-97); Platelet Count 140 K/mm3 (140-440); Red Blood Count 3.02 M/mm3 (3.65-5.03); Red Cell Distribution Width 16.4 % (13.2-15.2)
[2018-02-25] MEDS: FEOSOL PO SCH ×2 (10:00→21:49)
[2018-02-25] MEDS: NORMODYNE PO SCH ×2 (10:00→21:49)
[2018-02-25] MEDS: PRENATAL VITAMIN PO SCH (10:00)
[2018-02-25] MEDS: PROCARDIA XL PO SCH (10:01)
[2018-02-25] MEDS ORDERED: ANTIBIOTIC OINT TP PRN (10:30)
[2018-02-25 11:15] LABS: Anisocytosis 1+; Basophils % (Manual) 0 % (0.0-1.8); Total Cells Counted 100
[2018-02-25 11:16] LABS: Platelet Estimate Cons
--- NOTE | 2018-02-25 13:28 | Progress Note ---
Assessment and Plan s/p post hemorrhage,s/p ICU stay. Controlled. No bleeding . H/H adequate Dyspnea- resolved . Most likely benefiting from incentive spirometry and mobilization Placenta Abrupta Puerperium HBP. On meds. Being treated by [employer] at this point. Appears to be improving. Rec Monitor BP, H/H Incentive spirometry , mobilize patient DVT prophylaxis We'll sign off at this point. Feel free to reconsult if necessary Subjective Date of service: 02/25/18 Principal diagnosis: vaginal bleeding in third trimester,post hemorrhage Interval history: Patient reports no new respiratory complaints. Shortness of breath is now better, resolved. She is doing her incentive spirometry without problems. Spouse at the bedside [facility] Objective Vital Signs - 12hr 02/25/18 02/25/18 02/25/18 04:05 08:35 10:00 Temperature 98.4 F 99.4 F Pulse Rate 72 91 H 91 H Respiratory 18 18 Rate Blood Pressure 149/85 149/85 Blood Pressure 158/86 [Right] O2 Sat by Pulse 98 97 Oximetry 02/25/18 12:13 Temperature 98.3 F Pulse Rate 79 Respiratory 18 Rate Blood Pressure 164/83 Blood Pressure [Right] O2 Sat by Pulse 95 Oximetry Constitutional: no acute distress, alert Eyes: non-icteric ENT: oropharynx moist Neck: supple, no lymphadenopathy, no JVD Ascultation: Bilateral: clear Percussion: Bilateral: not dull Cardiovascular: regular rate and rhythm, murmur noted (07/12) Gastrointestinal: hypoactive bowel sounds, tender Integumentary: normal Extremities: edema (mild, pretibial and hands) Neurologic: normal mental status, pupils equal and round, CN II-XII normal, motor strength normal and Psychiatric: mood appropriate CBC and BMP: 02/25/18 08:57 02/22/18 07:58 ABG, PT/INR, D-dimer: PT/INR, D-dimer PT 14.7 Sec. (12.2-14.9) 02/21/18 05:56 INR 1.09 (0.87-1.13) 02/21/18 05:56 D-Dimer 4011.65 ng/mlDDU (0-234) H 02/20/18 15:02 Abnormal lab findings: Abnormal Labs 02/19/18 02/19/18 02/19/18 17:15 20:40 20:40 WBC RBC 3.16 L Hgb Hct MCV 102 H MCH 33 H RDW 15.3 H Plt Count 100 L Seg Neuts % (Manual) 83.0 H Lymphocytes % (Manual) 11.0 L Nucleated RBC % Seg Neutrophils # Man Lymphocytes # (Manual) 0.9 L D-Dimer Sodium Carbon Dioxide BUN Glucose POC Glucose 46 L Calcium Total Protein Albumin Urine WBC (Auto) Crossmatch See Detail 02/20/18 02/20/18 02/20/18 15:02 15:02 Unknown WBC RBC 3.24 L Hgb Hct MCV MCH RDW Plt Count 113 L Seg Neuts % (Manual) 88.0 H Lymphocytes % (Manual) 8.0 L Nucleated RBC % 1.0 H Seg Neutrophils # Man 7.8 H Lymphocytes # (Manual) 0.7 L D-Dimer 4011.65 H Sodium Carbon Dioxide BUN Glucose POC Glucose Calcium Total Protein Albumin Urine WBC (Auto) 36.0 H Crossmatch 02/21/18 02/21/18 02/21/18 05:56 08:17 23:35 WBC RBC 2.28 L Hgb 6.9 L D 5.1 L* Hct 20.8 L D 15.4 L* MCV MCH RDW 16.4 H Plt Count 57 L Seg Neuts % (Manual) Lymphocytes % (Manual) Nucleated RBC % Seg Neutrophils # Man Lymphocytes # (Manual) D-Dimer Sodium 135 L Carbon Dioxide 18 L BUN 18 H Glucose POC Glucose Calcium 7.8 L Total Protein 4.5 L Albumin 2.9 L Urine WBC (Auto) Crossmatch 02/22/18 02/22/18 02/22/18 00:42 06:32 07:58 WBC RBC 3.05 L Hgb 8.6 L D 9.3 L Hct 23.8 L D 27.0 L MCV MCH RDW 16.1 H Plt Count 72 L Seg Neuts % (Manual) Lymphocytes % (Manual) 8.0 L Nucleated RBC % Seg Neutrophils # Man Lymphocytes # (Manual) 0.8 L D-Dimer Sodium 136 L Carbon Dioxide 17 L BUN Glucose 101 H POC Glucose Calcium 7.7 L Total Protein Albumin Urine WBC (Auto) Crossmatch 02/22/18 02/23/18 02/25/18 12:57 07:45 08:57 WBC 14.1 H 14.9 H RBC 2.97 L 3.02 L Hgb 9.6 L 8.8 L 8.9 L Hct 28.7 L 26.6 L 27.1 L MCV MCH RDW 16.9 H 16.4 H Plt Count 91 L Seg Neuts % (Manual) 83.0 H Lymphocytes % (Manual) 7.0 L Nucleated RBC % 1.0 H Seg Neutrophils # Man 12.4 H Lymphocytes # (Manual) 1.0 L D-Dimer Sodium Carbon Dioxide BUN Glucose POC Glucose Calcium Total Protein Albumin Urine WBC (Auto) Crossmatch
[2018-02-25] MEDS: MOTRIN PO PRN (15:56)
[2018-02-26] MEDS: PERCOCET 5/325 PO PRN ×3 (02:56→14:50)
[2018-02-26] MEDS: CLEOCIN 600 MG/50 mL 600 MG/50 ML BAG IV SCH (02:58)
[2018-02-26] MEDS: MYLICON PO PRN ×2 (08:46→18:22)
--- NOTE | 2018-02-26 09:45 | Progress Note ---
Assessment and Plan - Patient Problems (1) Intrapartum hemorrhage Current Visit: Yes Status: Acute Plan to address problem: patient doing well discharge home (2) Febrile illness Current Visit: Yes Status: Acute (3) Anemia Current Visit: Yes Status: Acute (4) hypertension Current Visit: Yes Status: Acute Subjective - Subjective Date of service: 02/26/18 Principal diagnosis: vaginal bleeding in third trimester,post hemorrhage Interval history: Patient reports feeling better. She is ambulating and voiding. Pain is controlled. Edema is mildly improved. Blood pressures are better Patient reports: appetite normal, voiding normally, pain well controlled [place]: doing well Objective - Vital Signs Latest vital signs: Vital Signs Temp Pulse Resp BP BP Pulse Ox 02/26/18 08:57 99.6 F 90 22 146/81 02/26/18 04:53 99.2 F 77 16 134/81 02/26/18 00:38 98.7 F 95 H 18 117/72 02/25/18 20:30 98.2 F 96 H 18 128/80 02/25/18 16:48 98.6 F 95 H 18 131/75 91 02/25/18 12:13 98.3 F 79 18 164/83 95 02/25/18 10:00 91 H 149/85 Intake and Output 02/25/18 02/26/18 02/26/18 22:59 06:59 14:59 Intake Total 343 120 Balance 343 120 Intake: IV 103 Garamycin 120 mg In NaCl 103 0.9% 100 ml @ 206 mls/hr IV Q8HR [facility] Rx#:[id number] Intake, Free Water 240 120 Other: Voiding Method Toilet # Voids Void 1 1 - Exam Uterus: Present: normal, firm Incision: Present: normal - Labs Labs: Abnormal lab results 02/25/18 Range/Units 08:57 WBC 14.9 H (4.5-11.0) K/mm3 RBC 3.02 L (3.65-5.03) M/mm3 Hgb 8.9 L (10.1-14.3) gm/dl Hct 27.1 L (30.3-42.9) % RDW 16.4 H (13.2-15.2) % Seg Neuts % (Manual) 83.0 H (40.0-70.0) % Lymphocytes % (Manual) 7.0 L (13.4-35.0) % Nucleated RBC % 1.0 H (0.0-0.9) % Seg Neutrophils # Man 12.4 H (1.8-7.7) K/mm3 Lymphocytes # (Manual) 1.0 L (1.2-5.4) K/mm3
--- NOTE | 2018-02-26 09:49 | Discharge Summary ---
Providers - Providers Date of Admission: 02/19/18 12:25 Date of discharge: 02/26/18 Attending physician: ANNELISE REYES 02/20/18 10:28 Consult to Physician [CONS] Routine Comment: Consulting Provider: AKI CHUNG Physician Instructions: Reason For Exam: Vaginal bleeding, 34 wks 02/20/18 11:05 Consult to Physician [CONS] Stat Comment: pt came in yesterday for vaginal bleeding Consulting Provider: AKI CHUNG Physician Instructions: 34wks +3days Reason For Exam: vaginal bleeding 02/21/18 10:03 Consult to Physician [CONS] Routine Comment: Consulting Provider: MARU MALONE Physician Instructions: Reason For Exam: critical care Primary care physician: ANNELISE REYES Hospitalization Reason for admission: other (placental abruption) Procedure: section, primary low transverse Incision: normal complications: other (elevated blood pressure; anemia requiring transfusion) Discharge diagnosis: delivery baby: male Hospital course: Patient admitted for suspected placental abruption. During monitoring, the tracing with findings of late decels. Patient was experiencing significant abdominal pain prior to surgery. She underwent a primary delivery complicated massive hemorrhage. The patient was transfused and transferred to the ICU. She received IV antibiotics and antihypertensives. Condition at discharge: Good Disposition: DC-01 TO HOME OR SELFCARE - Discharge Diagnoses (1) Intrapartum hemorrhage Status: Acute (2) Febrile illness Status: Acute (3) Anemia Status: Acute (4) hypertension Status: Acute Plan - Discharge Medications Prescriptions: Docusate Sodium [Colace] 100 mg PO BID PRN #60 capsule PRN Reason: Constipation Ferrous Sulfate [Feosol 325 MG tab] 325 mg PO BID #60 tablet Ibuprofen [Motrin] 800 mg PO Q8HR PRN #60 tablet PRN Reason: Pain, Moderate (4-6) Labetalol [Normodyne TAB] 300 mg PO BID #60 tablet NIFEdipine XL [Procardia Xl] 90 mg PO QDAY #30 tablet Oxycodone HCl/Acetaminophen [Percocet 7.5/325 mg] 1 each PO Q6HR PRN #45 tablet PRN Reason: Pain - Provider Discharge Summary Activity: no sex for 6 weeks, no heavy lifting 4 weeks, no strenuous exercise Diet: routine Instructions: routine Additional instructions: [] Smoking cessation referral if applicable(refer to patient education folder for contact #) [] Refer to [facility] Booklet Call your doctor immediately for: * Fever > 100.5 * Heavy vaginal bleeding ( >1 pad per hour) * Severe persistent headache * Shortness of breath * Reddened, hot, painful area to leg or breast * Drainage or odor from incision. * Keep incision clean and dry at all times and follow doctor's instructions regarding bathing/showering Schedule followup with Dr. Rebolledo in 2 weeks - Follow up plan
[2018-02-26] MEDS: PRENATAL VITAMIN PO SCH (10:25)
[2018-02-26] MEDS: PROCARDIA XL PO SCH (10:25)
[2018-02-26] MEDS: FEOSOL PO SCH (10:25)
[2018-02-26] MEDS: NORMODYNE PO SCH (10:25)
[2018-02-26 17:00] VITALS: BP 116/74
[2018-02-26] MEDS: MOTRIN PO PRN (18:23)
== END 2018-02-26 18:29 | disposition home or self-care (01) | DRG 765 ==
LOC: TRG 11:31 → OBSVTOIN 12:25 → LD 12:25 → TRG 12:25 → APU 02-20 21:29 → OB 02-21 → CC1 02-21 09:30 → OB 02-22 17:36
PROVIDERS: ADMIT Pediatrics Pediatric Cardiology; ATTEND Obstetrics & Gynecology
PROC: 10D00Z1 Extraction of Products of Conception, Low, Open Approach (ICD-10-PCS; principal; 2018-02-20)
PROC: 30233L1 Transfusion of Nonautologous Fresh Plasma into Peripheral Vein, Percutaneous Approach (ICD-10-PCS; 2018-02-21)
PROC: 30233K1 Transfusion of Nonautologous Frozen Plasma into Peripheral Vein, Percutaneous Approach (ICD-10-PCS; 2018-02-21)
PROC: 30233N1 Transfusion of Nonautologous Red Blood Cells into Peripheral Vein, Percutaneous Approach (ICD-10-PCS; 2018-02-21)
PROC: 30233R1 Transfusion of Nonautologous Platelets into Peripheral Vein, Percutaneous Approach (ICD-10-PCS; 2018-02-21)
DX: O60.14X0 Preterm labor third trimester with preterm delivery third trimester, not applicable or unspecified (principal); O45.93 Premature separation of placenta, unspecified, third trimester; O75.3 Other infection during labor; D62 Acute posthemorrhagic anemia; O90.81 Anemia of the puerperium; O16.5 Unspecified maternal hypertension, complicating the puerperium; Z3A.34 34 weeks gestation of pregnancy; Z37.0 Single live birth; O36.8130 Decreased fetal movements, third trimester, not applicable or unspecified; O99.62 Diseases of the digestive system complicating childbirth; O99.214 Obesity complicating childbirth; D69.6 Thrombocytopenia, unspecified; O99.824 Streptococcus B carrier state complicating childbirth; O99.814 Abnormal glucose complicating childbirth; K21.9 Gastro-esophageal reflux disease without esophagitis; Z88.2 Allergy status to sulfonamides; Z82.49 Family history of ischemic heart disease and other diseases of the circulatory system; Z83.3 Family history of diabetes mellitus; O76 Abnormality in fetal heart rate and rhythm complicating labor and delivery
CPT/HCPCS: 36415; 59025; 76815; 76816; 76819; 76856; 80048; 80053; 80170; 81001; 82962; 85007; 85014; 85018; 85025; 85027; 85379; 85384; 85610; 85730; 86592; 86706; 86762; 86850; 86900; 86901; 86920; 87806; 88307; 93005; 93010; 94760; 99211; A6250; G0463; J0690; J0696; J0702; J1170; J1580; J1885; J2270; J2590; J2765; J7030; J7050; J7120; P9016; P9017; P9035